=== PATIENT | female | born 1965 | race Caucasian/White ===

== ENCOUNTER 2016-10-29 17:26 | Emergency (ER) | payer MEDICAID ==
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
== END 2016-10-29 19:40 | disposition home or self-care (01) ==
LOC: ER 17:26
DX: F99 Mental disorder, not otherwise specified (principal); F32.9 Major depressive disorder, single episode, unspecified; Z98.890 Other specified postprocedural states; Z79.82 Long term (current) use of aspirin

== ENCOUNTER 2016-11-08 18:52 | Emergency (ER) | payer MEDICAID ==
--- NOTE | 2016-11-11 14:00 | ER ---
ADMIT: 11/08/2016 RM/LOC: ER [facility] MR#: [id number] [address] [address] [place]ARCIA [address] [place] [address] Emergency Room Report SEX: F AGE: 51 : 1965 DATE: 11/08/2016 ADDENDUM: CHIEF COMPLAINT: She believes that she is poisoned with chemicals and has numerous complaints. HISTORY OF PRESENT ILLNESS: A 51-year-old female, comes in complaining of complaints that she believes there are chemicals that are running through her body. She believes this is causing her to have lymph problems to cause her stomach to turn. She believes that she has intermittent swelling throughout her body and that she believes she is being poisoned by some intermittent chemicals that are somehow associated with Groundhog Day. She tells me that she has been running from the chemicals, but is not sure if this is helping. She also states that she has been using pressure point treatment and she is constantly massaging her different parts of her body including her head, shoulder, stomach, legs when I am in the room. REVIEW OF SYSTEMS: Denies any chest pain or shortness of breath. Denies any change in bowel or bladder function. PAST MEDICAL HISTORY: Significant for bipolar and GERD. MEDICATIONS: See nurse's note. ALLERGIES: SEE NURSE'S NOTE. SOCIAL HISTORY: Denies smoking, drug, or alcohol use. PHYSICAL EXAMINATION: See T-sheet. MEDICAL DECISION MAKING: Based on the patient's physical exam, I do not believe she is having any emergent condition at this time. I do believe she has significant underlying psychiatric illness, but at this point, she denies any homicidal or suicidal ideation. I believe she is having some delusions at this point, her vital signs were completely stable while she was here. At ADMIT: 11/08/2016 RM/LOC: ER [facility] MR#: [id number] [address] [address] [place] [address] [place] [address] [place] [address] Emergency Room Report SEX: F AGE: 51 : 1965 this point, I do not believe there is any further workup required emergently and no specific therapy needs to be initiated. I would encourage her to follow up with her primary care physician, so she can get further psychiatric treatment. She was given a GI cocktail in the Emergency Department, was discharged home with; DIAGNOSES: 1. Anxiety. 2. Gastroesophageal reflux disease. PLAN: To follow up with [facility]. She is discharged in stable condition. Marco Turner MD/ anurag JOB #: [id number] CC: Richard Lopez MD, Attending Physician Master Hanson MD, Family Physician
== END 2016-11-08 20:10 | disposition home or self-care (01) ==
LOC: ER 18:52
DX: F41.9 Anxiety disorder, unspecified (principal); K21.9 Gastro-esophageal reflux disease without esophagitis; Z79.899 Other long term (current) drug therapy

== ENCOUNTER 2016-11-10 06:08 | Emergency (ER) | payer MEDICAID ==
--- NOTE | 2016-11-11 10:00 | ER ---
ADMIT: 11/10/2016 RM/LOC: ER [facility] MR#: [id number] [address] [address] MOHS[place] GARCIA [address] [place] [address] [place] [address] Emergency Room Report SEX: F AGE: 51 : 1965 DATE: 11/10/2016 ADDENDUM: This is a 51-year-old, white female with chronic nonspecific psychiatric disease. This is mainly delusional from what we see today. She is not suicidal. She is not a candidate for EPC. These are chronic recurrent changes. She is functional. She does drive and get around; however, she believes that there are chemicals coming out her body. She said she has talked to the [facility]. There is black things off her tongue as well as oozing out of her skin. She has been seen by at [facility]. We are going to try and get her back over there, so she can continue her outpatient treatments. CONDITION ON DISCHARGE: Fair. Mohit Madrigal MD/ anurag JOB #: [id number] CC: Julio C Villatoro MD, Attending Physician Mannie Ma MD, Family Physician
== END 2016-11-10 08:33 | disposition home or self-care (01) ==
LOC: ER 06:08
DX: F22 Delusional disorders (principal); F41.9 Anxiety disorder, unspecified; Z79.899 Other long term (current) drug therapy

== ENCOUNTER 2016-12-12 10:30 | Emergency (ER) | payer MEDICAID ==
--- NOTE | 2016-12-18 16:08 | ER ---
ADMIT: 12/12/2016 RM/LOC: ER [facility] MR#: [id number] [address] [address] [place] [address] [place] [address] [place] [address] Emergency Room Report SEX: F AGE: 51 : 1965 DATE: 12/12/2016 ADDENDUM: CHIEF COMPLAINT: Multiple. She has right foot pain, she has tingling in her right arm and left leg, she has fluid that is going down her throat, fluid in her ear, she has a black tongue, and she has had a skin rash intermittently. 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 She said she has not been living there. She has been living in her car for now, but has been again drinking the water that has chemicals in her well. So she just feels like her symptoms are continuing to worsen. While here, she reports that she was having a stroke because of some tingling that she was having, but her tingling is in multiple areas. She does not have any weakness. No neurological deficit. She does have flight of ideas, but I am able to get her back focused on what we were talking about. She had multiple supplements in her bag. I did tell her to be careful of taking those supplements. She does have omeprazole for GERD. I told her to continue taking that. She wanted a "full body scan" to make sure everything looked okay while here. I said, there was not any reason to do full body scan because she does not have any neurological deficits. I do not believe that she is having a stroke. She got very angry and started yelling. She left the room and she would not sign AMA forms, would not talk to us, she just walked out of the hospital. 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 ZULEYKA Polo / Mohit Madrigal MD / anurag JOB #: [id number] CC: Mohit Madrigal MD, Attending Physician
== END 2016-12-12 11:00 | disposition left against medical advice (07) ==
LOC: ER 10:30
DX: Z77.098 Contact with and (suspected) exposure to other hazardous, chiefly nonmedicinal, chemicals (principal); F31.9 Bipolar disorder, unspecified; Z87.891 Personal history of nicotine dependence

== ENCOUNTER 2016-12-12 16:23 | Emergency (ER) | payer MEDICAID ==
--- NOTE | 2016-12-18 16:08 | ER ---
ADMIT: 12/12/2016 RM/LOC: ER [facility] MR#: [id number] [address] [facility] [address] [place] [address] [place] [address]IA [address] [address] [place] [address] Emergency Room Report SEX: F AGE: 51 : 1965 DATE: 12/12/2016 CHIEF COMPLAINT: "Chemical running through my body". HISTORY OF PRESENT ILLNESS: This is a 51-year-old white female, who presents to the ER stating she has been seen multiple times by multiple providers for the same problem. The patient states she lives next to a field, where they use anhydrous ammonia and other chemicals. She states that these are poisoning her and running through her system, causing all kinds of problems. States she has some irritation behind both of her ears, on her neck. She states that she feels like she had a stroke this morning that her cognition is not straight. She feels like her brain is "swollen and feels like a wave." She states that she gets a plaque on her tongue that previously had been treated like a fungal infection, but she knows that her "heart and tongue are connected and her heart looks like her tongue." She admits to problems with her vision, sore throat, nasal drainage, cough, abdominal pain, swollen glands, numbness, weakness, and difficulty with speech. COURSE IN THE EMERGENCY ROOM: Patient was seen and examined. She is afebrile, nontoxic. She is in a mild amount of distress. She is alert, however, anxious. She repeatedly raises her voice when I interrupt her. She is tangential in her thought process. She is very pressured. She rambles on about the chemicals that are affecting her body. She adamantly denies any substance use. PHYSICAL EXAMINATION: ENT: Exam is otherwise normal. She does have some eczematous dry plaques behind her ear. NEUROLOGICAL: She is intact. Cranial nerves are normal. Motor is equal bilaterally in upper lower extremities. Sensation is normal. IMPRESSION: Eczema, bilateral neck. DISPOSITION: Encouraged the patient to use ifrp-yek-tzftygf hydrocortisone to the rash as needed. She is to increase her fluids. Continue all her medications. Return with worsening signs or symptoms and follow up with [facility] as needed. Questions were sought and answered to the best of my ability and to the patient's satisfaction. She was discharged in stable condition; however, she did leave prior to receiving discharge instructions. ZULEYKA Rain / Mohit Madrigal MD / anurag JOB #: [id number] CC: Mohit Madrigal MD, Attending Physician UNKNOWN, Family Physician
== END 2016-12-12 17:07 | disposition home or self-care (01) ==
LOC: ER 16:23
DX: L30.9 Dermatitis, unspecified (principal)

== ENCOUNTER 2016-12-15 07:38 | Emergency (ER) | payer MEDICAID | END 2016-12-15 09:03 | disposition home or self-care (01) | DX: K21.9 Gastro-esophageal reflux disease without esophagitis (principal); Z87.891 Personal history of nicotine dependence; Z79.899 Other long term (current) drug therapy ==

== ENCOUNTER 2016-12-17 12:06 | Emergency (ER) | payer MEDICAID ==
--- NOTE | 2016-12-20 18:24 | ER ---
ADMIT: 12/17/2016 RM/LOC: ER [facility] MR#: [id number] [address] [address] [place] [address] [place] [address] [place] [address] Emergency Room Report SEX: F AGE: 51 : 1965 DATE: 12/17/2016 TIME: 1206 hours. Please refer to my T-sheet for complete H and P. Briefly, patient is a 51-year-old who comes in with chest discomfort. She says she has had it since she was a kid. She is 51. She has schizophrenia. She has multiple other complaints. She has been frustrated with [facility] and comes over here. She has been seen in our ER often. PHYSICAL EXAMINATION: VITAL SIGNS: Her blood pressure is slightly low in the 80s and 90s. Otherwise her vital signs are stable. HEENT: Grossly normal. LUNGS: Clear. HEART: Regular. ABDOMEN: Soft. SKIN: No rash. EMERGENCY DEPARTMENT COURSE: The EKG revealed sinus rhythm, no hyperacute changes. Her CBC normal. Chemistries normal. Troponin negative and chest x- ray negative. We gave her a liter normal saline bolus, 30 of Toradol IV. She was improved. ASSESSMENT: 1. Atypical chest pain. 2. Schizophrenia. PLAN: Tylenol. Return if worse. Follow up with [facility]. Mykel Jackson MD/ anurag JOB #: [id number] CC: Mykel Jackson MD, Attending Physician [facility], Family Physician
== END 2016-12-17 14:15 | disposition home or self-care (01) ==
LOC: ER 12:06
DX: R07.89 Other chest pain (principal); F20.9 Schizophrenia, unspecified; Z79.82 Long term (current) use of aspirin

== ENCOUNTER 2016-12-19 03:48 | Emergency (ER) | payer MEDICAID ==
--- NOTE | 2016-12-20 04:16 | ER ---
ADMIT: 12/19/2016 RM/LOC: ER [facility] MR#: [id number] [address] [address] [place] GARCIA [address] [place] [address] Emergency Room Report SEX: F AGE: 51 : 1965 DATE: 12/19/2016 CHIEF COMPLAINT: Bacteria in mouth, tongue, and poison running through her body. HISTORY OF PRESENT ILLNESS: The patient is a 51-year-old female, presents complaining of multiple complaints. She is fairly well known to our Emergency Department and has been seen for similar complaints in the past. The patient states that she believes she is being poisoned by chemicals that the farmers are putting on the [place]. She states that she has called the EPA to complain about this and knows that poisons are coursing through her body and that she has to use essential oils to pull the poisons out of her body. She states that she knows that she is having strokes all the time and that she is having heart attacks. She states that when her heart stops, she has to use chalkyitsik juice to get it started. PAST MEDICAL HISTORY: The patient reports that she has heart failure, liver failure, strokes, heart attacks, and that she is being poisoned. SOCIAL HISTORY: Denies smoking, drug, or alcohol use. PHYSICAL EXAMINATION: GENERAL: The patient is in no distress. HEENT: Head is atraumatic. Extraocular muscles are intact. SKIN: Warm and dry. HEART: Regular rate and rhythm. LUNGS: Clear to auscultation. EXTREMITIES: The patient can move all extremities with grossly normal motor movement and normal coordination. EMERGENCY DEPARTMENT COURSE: During my course of examining the patient, she is complaining of numerous medical problems that seem unrelated. I have seen her before for similar complaints she is having at this time. She is becoming agitated and not cooperative with answering our questions. She becomes verbally abusive. I told her I was willing to do an EKG to show her how her heart was doing, and she became angrier and she actually just stormed out of the room. The patient did not appear to be in any distress, whatsoever. The patient left without any further treatment, and I did not find any of our discharge forms or instructions. Marco Turner MD/ anurag JOB #: [id number] CC: Marco Turner MD, Attending Physician Norah Dejesus APRN-VADIM, Family Physician
== END 2016-12-19 03:50 | disposition left against medical advice (07) ==
LOC: ER 03:48
DX: T82.838A Hemorrhage due to vascular prosthetic devices, implants and grafts, initial encounter (principal); E11.22 Type 2 diabetes mellitus with diabetic chronic kidney disease; I12.0 Hypertensive chronic kidney disease with stage 5 chronic kidney disease or end stage renal disease; N18.6 End stage renal disease; I50.9 Heart failure, unspecified; D63.1 Anemia in chronic kidney disease

== ENCOUNTER 2016-12-20 01:43 | Emergency (ER) | payer MEDICAID ==
--- NOTE | 2016-12-20 04:20 | ER ---
ADMIT: 12/20/2016 RM/LOC: ER [facility] MR#: [id number] [address] [address] [place] [address] [place] [address] Emergency Room Report SEX: F AGE: 51 : 1965 DATE: 12/20/2016 CHIEF COMPLAINT: "I feel like I am having my heart attack, I am having a dissection, it wraps around my thyroid, and my toe hurts." HISTORY OF PRESENT ILLNESS: The patient is a 51-year-old female, who is well known to our Emergency Department, comes in with multiple complaints. Usually, they involve the fact that she believes she has been exposed to chemicals by the sprays farmers put on their field. I actually saw the patient last night for complaints of feeling like she was having a heart attack and that was having stroke after stroke after stroke. She actually stormed out of the ER last night when I was examining the patient. At this point, the patient had complaints stating that she felt like her back was leaking up around her shoulders down into her neck and then down into her toe. Essentially, she changes her story when I am in the room and states that she just feels like her back is sore. PAST MEDICAL HISTORY: Significant for psychiatric illness. MEDICATIONS: She states she took an aspirin today and uses essential oils and takes tatitlek juice to restart her heart which she has her heart attacks. ALLERGIES: DENIES. PHYSICAL EXAMINATION: VITAL SIGNS: See T-sheet for vital signs. HEENT: Head is atraumatic. The patient is in no distress. Pupils are equally round and reactive to light. Extraocular muscles are intact. LUNGS: The patient is in no respiratory distress. EXTREMITIES: She is moving all her extremities. SKIN: Warm and dry. She defers to be able to do a complete physical exam. MEDICAL DECISION MAKING: I tried to talk to the patient, but she is not all that cooperative to my questions in my examination. She states her back is sore and I said that we could give her a shot of Toradol if she would like to see if that would help and she is agreeable to that. She was given a shot of Toradol and told that she should follow up with her primary care physician that she sees at [facility]. DIAGNOSIS: Back pain. Marco Turner MD/ anurag JOB #: [id number] CC: Marco Turner MD, Attending Physician ADMIT: 12/20/2016 RM/LOC: [facility] MR#: [id number] [address] [address] [place] GARC[place] [address] [facility] [address] [place], [place] [id number] Emergency Room Report SEX: F AGE: 51 : 1965 Rick Hernandez MD, Family Physician
== END 2016-12-20 02:45 | disposition home or self-care (01) ==
LOC: ER 01:43
DX: M54.9 Dorsalgia, unspecified (principal)

== ENCOUNTER 2016-12-23 15:56 | Emergency (ER) | payer MEDICAID ==
--- NOTE | 2016-12-29 10:35 | ER ---
ADMIT: 12/23/2016 RM/LOC: ER [facility] MR#: [id number] [address] [address] [place] GARCIA [address] [place] [address] [place] [address] Emergency Room Report SEX: F AGE: 51 : 1965 DATE: 12/23/2016 ADDENDUM: A 51-year-old white female who has an undiagnosed psychiatric illness. She is quite delusional. She has about most things and is paranoid. She is not suicidal, but does think that the chemicals out of the ground are leaking into her system. She has multiple delusions about her body and illnesses. She has been here multiple times. At this time, she has no acute medical condition. She is not suicidal, so she will be discharged. Mohit Madrigal MD/ anurag JOB #: [id number] CC: Mohit Madrigal MD, Attending Physician Ashish Blackwell MD, Family Physician
== END 2016-12-23 17:28 | disposition home or self-care (01) ==
LOC: ER 15:56
DX: F22 Delusional disorders (principal); Z79.82 Long term (current) use of aspirin